=== PATIENT | female | born 1965 | race Two or more races ===

== ENCOUNTER 2025-03-13 20:20 | Emergency (ER) | payer MEDICAID, SELFPAY ==
[2025-03-13 21:20] VITALS: BP 174/94; PULSE 76; RESP 20; TEMP 36.9; O2SAT 96; BMI 40.8
--- NOTE | 2025-03-13 21:27 | XR_ITS ---
Examination: Abdomen sonogram, Limited Date and time of exam: March 13, 2025, 2147 hours INDICATIONS: Right upper abdominal pain today Technique: Real-time jalloh scale transabdominal sonographic images of the upper abdomen obtained. Findings: No stones Gallbladder 1.3 cm no edema Common bile duct 0.5 cm Pancreatic head 2.5 cm Liver 19.5 cc of fatty infiltration Normal hepatopedal portal venous flow Patent IVC IMPRESSION: Negative for cholelithiasis, negative for cholecystitis Moderate hepatomegaly with fatty infiltration
--- NOTE | 2025-03-13 21:27 | EDRME_ITS ---
Rapid Medical Screening Exam [facility] Arrival date/time: 03/13/25 20:20 59F with history of DM presents to ED with worsening RUQ/epigastric pain. Chief Complaint: Abdominal Pain Vital signs: Vital Signs Temperature 98.5 F 03/13/25 21:20 Pulse Rate 76 03/13/25 21:20 Respiratory Rate 20 03/13/25 21:20 Blood Pressure 174/94 H 03/13/25 21:20 Pulse Oximetry (%) 96 03/13/25 21:20 Oxygen Delivery Method Room Air 03/13/25 21:20
[2025-03-13] MEDS: MG HYD/AL HYD/SIME (Maalox Reg) SUSP 30 ML UDC PO (21:44)
[2025-03-13] MEDS: FAMOTIDINE 20 MG TABLET 40 MG PO (21:44)
[2025-03-13 22:30] LABS: Basophils # (Auto) 0.0 Thou/mm3 (0.0-0.2); Basophils % (Auto) 1 % (0-2.5); Eosinophils # (Auto) 0.2 Thou/mm3 (0.0-0.5); Eosinophils % (Auto) 2 % (0-10); Hematocrit 35.3 % (36.0-46.0); Hemoglobin 11.2 g/dL (12.0-16.0); Immature Granulocytes Auto 0.02 Thou/mm3 (0.00-0.00); Lymphocytes # (Auto) 2.7 Thou/mm3 (1.0-4.8); Lymphocytes % (Auto) 35 % (10-50); Mean Corpuscular HGB Conc 31.7 g/dl (31.0-37.0); Mean Corpuscular Hemoglobin 28.3 pg (25.0-35.0); Mean Corpuscular Volume 89 fL (80-100); Monocytes # (Auto) 0.6 Thou/mm3 (0.0-0.8); Monocytes % (Auto) 8 % (0-12); Neutrophils # (Auto) 4.2 Thou/mm3 (1.8-7.7); Neutrophils % (Auto) 54 % (37-80); Nucleated Red Blood Cell # 0.00 Thou/mm3 (0.00-0.00); Nucleated Red Blood Cell % 0 /100 WBC (0); Platelet Count 186 Thou/mm3 (140-440); RDW Standard Deviation 40.2 fL (36.4-46.3); Red Blood Count 3.96 Miln/mm3 (4.00-5.20); White Blood Count 7.8 Thou/mm3 (3.6-11.0)
[2025-03-13 22:48] LABS: Alanine Aminotransferase 42 U/L (10-49); Albumin, Serum 4.6 gm/dL (3.5-5.0); Albumin/Globulin Ratio 1.8 (1.2-2.2); Alkaline Phosphatase 106 U/L (46-116); Anion Gap 9 (7-16); Aspartate Amino Transferase 32 U/L (0-34); BUN/Creatinine Ratio 14 Ratio (12-20); Bilirubin,Total 1.0 mg/dL (0.3-1.2); Blood Urea Nitrogen 14 mg/dL (9-23); Calcium 10.1 mg/dL (8.3-10.6); Calcium (Corrected) 10.1 mg/dL (8.5-10.1); Carbon Dioxide 24.3 mMol/L (20.0-31.0); Chloride 105 mMol/L (98-107); Creatinine (Component) 1.0 mg/dL (0.6-1.3); Estimated Creatinine Clearance 74.5 mL/min (>60); Globulin 2.5 gm/dL (2.3-3.5); Glucose 215 mg/dL (74-106); Lipase 49 U/L (12-53); Osmolality,Calculated 282 (275-295); Potassium 4.5 mMol/L (3.4-5.1); Sodium 138 mMol/L (136-145); Total Protein 7.1 gm/dL (5.7-8.2); eGFR > 60 See Note
[2025-03-14 00:24] VITALS: BP 201/83; PULSE 70; RESP 21; TEMP 36.6; O2SAT 100
[2025-03-14 00:30] VITALS: BP 191/101
--- NOTE | 2025-03-14 00:41 | PD.EDABDPN ---
ED Abdominal Pain RME/HPI General Chief Complaint: Abdominal Pain Stated complaint: upper abdominal pain Arrival date/time: 03/13/25 20:20 RME / HPI RME / HPI narrative: 03/13/25 20:20 59F with history of DM presents to ED with worsening RUQ/epigastric pain. 59-year-old female with a 1 day history of epigastric abdominal pain and burning in her chest. She does have a history of possible gallstones and gastroesophageal reflux disease. She denies fevers. This pain is made worse with food. No vomiting. She does have a history of hypertension. Related Data Previous Rx's ?Medication ?Instructions ?Recorded psyllium husk 3 gram/5.4 gram oral 1 tbsp PO QDAY #284 grams 08/30/22 powder blood sugar diagnostic (Blood #50 ea 12/13/23 Glucose Test strips) blood-glucose meter #1 ea 12/13/23 blood-glucose sensor (FreeStyle #2 ea 12/13/23 Marjorie 3 Sensor device) insulin glargine 100 unit/mL (3 40 unit (0.4 mL) subcut QDAY #15 mL 12/13/23 mL) subcutaneous pen, sensor (Basaglar Tempo Pen (U-100) Insulin) lancets #100 ea 12/13/23 pen needle, diabetic 29 gauge x #100 ea 12/13/23 1/2 hydrocodone 5 mg-acetaminophen 325 1 tab PO BID PRN pain #10 tabs 03/12/24 mg tablet bisacodyl 5 mg tablet,delayed 5 mg PO QDAY PRN constipation #30 04/11/24 release (Dulcolax (bisacodyl)) tabs amoxicillin 500 mg-potassium 1 tab PO TID #20 tabs 05/02/24 clavulanate 125 mg tablet (Augmentin) hydrocodone 5 mg-acetaminophen 325 1 tab PO Q8H PRN pain #10 tabs 05/02/24 mg tablet polyethylene glycol 3350 17 gram 17 g PO BID #100 ea 05/02/24 oral powder packet (Miralax) peg 3350-electrolytes 236 240 ml PO Q10M PRN constipation 05/18/24 gram-22.74 gram-6.74 gram-5.86 #4,000 mL gram solution (GaviLyte-G) pantoprazole 40 mg tablet,delayed 40 mg PO QDAY #30 tabs 03/14/25 release (Protonix) Allergies Allergy/AdvReac Type Severity Reaction Status Date / Time No Known Allergies Allergy Verified 05/18/24 15:05 Review of Systems Review of Systems Systems Reviewed: All systems reviewed, normal except as documented ED Exam Narrative Physical exam: Generally patient is alert no obvious distress, heart regular rate and rhythm, lungs clear to auscultation equal bilaterally, abdomen soft bowel sounds present nondistended mild epigastric abdominal tenderness without rebound. No right upper quadrant abdominal tenderness. Skin is cool pale and dry. Neurologic exam no focal motor or sensory deficits cranial nerves II through XII grossly intact Course Quality Measures none Orders Category Date Time Status US gall bladder Stat Exams 03/13/25 21:27 Completed CBC Stat Lab 03/13/25 22:15 Completed CMP [Comprehensive Metabolic Panel] Stat Lab 03/13/25 22:15 Completed Lipase Stat Lab 03/13/25 22:15 Completed Famotidine [Pepcid] Med 03/13/25 21:27 Discontinued 40 mg PO X1 ONE mg Hyd/Al Hyd/Xu Susp [Maalox Susp] Med 03/13/25 21:27 Discontinued 30 ml PO X1 ONE Vital Signs Vital signs: Vital Signs Temperature 98.5 F 03/13/25 21:20 Pulse Rate 76 03/13/25 21:20 Respiratory Rate 20 03/13/25 21:20 Blood Pressure 174/94 H 03/13/25 21:20 Pulse Oximetry (%) 96 03/13/25 21:20 Oxygen Delivery Method Room Air 03/13/25 21:20 Abdominal Pain MDM MDM Narrative MDM Narrative:: I interpreted all labs. LFTs were normal. There is no leukocytosis. Physical exam is quite benign. I will start the patient on Protonix to be taken as prescribed. Patient did have a gallbladder ultrasound here in the emergency room which was negative. Patient data External records reviewed:: None Clinical information provided by:: patient Social determinants that could affect healthcare access:: none Patient has the following chronic illnesses:: Gastroesophageal reflux disease How is presenting disease/condition affected by chronic disease/condition?: no chronic disease Evaluation data The following diagnostics were reviewed and interpreted by me:: lab results and radiology exam(s) Lab and/or radiology exams considered but not ordered:: None Interpretation Summary: None Medications / Prescriptions Medications or Prescriptions considered but not ordered:: None Medication administrations:: Medication Administration History Discontinued Medications Al Hydrox/Mg Hydrox/Simethicone (Mg Hyd/Al Hyd/Xu (Maalox Reg) Susp 30 Ml Udc) 30 ml PO X1 ONE Stop: 03/13/25 21:28 Last Admin: 03/13/25 21:44 Dose: 30 ml Documented By: OA Famotidine (Famotidine 20 Mg Tablet) 40 mg PO X1 ONE Stop: 03/13/25 21:28 Last Admin: 03/13/25 21:44 Dose: 40 mg Documented By: OA None Consultations Consultation(s) initiated? (list below): Yes Diagnosis Differential diagnosis abdominal pain: abdominal pain Most likely diagnosis given after review of the tests above:: None Admission Indicated Admission indicated?: not indicated Admission Request Was there a request for admission?: No Disposition Plan Disposition Plan: Discharge Discharge Attestation Discharge Attestation: The patient and all family members were given an opportunity to ask questions and understood the discharge instructions. Discharge instructions specifically effects, indications for sooner follow up or return to the emergency department, and the expected course of current diagnosis. Patient condition: Stable Discharge Plan Plan Patient Disposition: HOME (Self Care) Prescriptions/Referrals Prescriptions/Med Rec: New pantoprazole [Protonix] 40 mg tablet,delayed release (DR/EC) 40 mg PO QDAY Qty: 30 0RF No Action psyllium husk 3 gram/5.4 gram powder 1 tbsp PO QDAY Qty: 284 0RF Rx Instructions: mix into at least 8 oz of water or juice before administering (DME) FreeStyle Marjorie 3 Sensor Device See Rx Instructions .Route Qty: 2 0RF Rx Instructions: As directed Basaglar Tempo Pen(U-100)Insln 100 unit/mL (3 mL) insulin pen, sensor 40 unit subcut QDAY Qty: 15 0RF (DME) pen needle, diabetic 29 gauge x 1/2 needle See Rx Instructions .Route Qty: 100 0RF Rx Instructions: As directed (DME) Blood Glucose Test Strip See Rx Instructions .Route Qty: 50 0RF Rx Instructions: As directed (DME) lancets Misc See Rx Instructions .Route Qty: 100 0RF Rx Instructions: As directed (DME) blood-glucose meter Kit See Rx Instructions .Route Qty: 1 0RF Rx Instructions: As directed peg 3350-electrolytes [GaviLyte-G] 236-22.74-6.74 -5.86 gram recon soln 240 ml PO Q10M PRN (Reason: constipation) Qty: 4000 0RF Rx Instructions: until fecal effluent is clear hydrocodone-acetaminophen 5-325 mg tablet 1 tab PO BID MDD 10 PRN (Reason: pain) Qty: 10 0RF bisacodyl [Dulcolax (bisacodyl)] 5 mg tablet,delayed release (DR/EC) 5 mg PO QDAY PRN (Reason: constipation) Qty: 30 0RF hydrocodone-acetaminophen 5-325 mg tablet 1 tab PO Q8H MDD 3 tab PRN (Reason: pain) Qty: 10 0RF amoxicillin-pot clavulanate [Augmentin] 500-125 mg tablet 1 tab PO TID Qty: 20 0RF polyethylene glycol 3350 [Miralax] 17 gram powder in packet 17 g PO BID Qty: 100 0RF Referrals: No Primary/Family,Physician [Primary Care Provider] - In 1 week Problem List Clinical Impression: Abdominal pain Patient/Caregiver Discharge Instructions Education Materials: Abdominal Pain Additional Instructions: Avoid hot spicy greasy fatty foods. Follow-up with your doctor. Return to ER as needed or if condition worsens. Protonix as prescribed. Print Language: Turkish Stand Alone Forms: Manju Award Info., Patient Portal Info Letter
== END 2025-03-14 01:00 | disposition home or self-care (01) ==
PROVIDERS: Physician Assistant; Emergency Provider Emergency Medicine
DX: R10.13 Epigastric pain (principal); I10 Essential (primary) hypertension; K76.0 Fatty (change of) liver, not elsewhere classified
CPT/HCPCS: 36415; 76705; 80053; 83690; 85025; 99283; A9270

== ENCOUNTER 2025-05-13 15:56 | Emergency (ER) | payer MEDICAID, SELFPAY ==
[2025-05-13 16:33] VITALS: BP 146/87; PULSE 84; RESP 18; TEMP 36.9; O2SAT 97; BMI 41.1
--- NOTE | 2025-05-13 16:51 | XR_ITS ---
Examination: CT abdomen and pelvis without contrast. Coronal 3-D reconstructions. Sagittal 2-D reconstructions. Date and time of exam: May 13, 2025, 1715 hours, comparison May 02, 2024 INDICATIONS: Generalized abdominal pain beginning 4 days ago COMPARISON: May 02, 2024 CTDI: vol (mGy): 12.8 DLP: (mGycm): 749 Technique: Axial images of the abdomen have been obtained, 3 mm slice thickness Intravenous contrast material has not been administered. Low dose protocols were performed. One or more of the following dose reduction techniques were used; automated exposure control, adjustment of the mA and/or KV according to patient size, use of iterative reconstruction technique. Findings: No visualized liver or splenic lesions No gallstones No pancreatic or adrenal mass Absent left kidney Moderate right renal parenchymal scar formation, 2 mm right renal calculus, no hydronephrosis or ureteral calculi Aorta normal size No bowel obstruction Normal appendix No diverticulitis. Atrophic uterus Contracted urinary bladder. Prominent osteopenia with chronic osteoporotic compression T11 IMPRESSION: Absent left kidney Moderate right renal parenchymal scar formation 2 mm right renal calculus, no hydronephrosis or ureteral calculi Normal appendix No bladder mass or bladder calculi.
--- NOTE | 2025-05-13 16:51 | PD.EDRME ---
Rapid Medical Screening Exam [facility] Arrival date/time: 05/13/25 15:56 59-year-old female with a history of type 2 diabetes presents to the emergency room with a chief complaint of lower abdominal pain x 1 week I have greeted and performed a focused initial assessment of this patient. A comprehensive ED assessment and evaluation of the patient, analysis of all test results, and completion of the medical decision making process will be conducted by additional ED providers. Chief Complaint: Abdominal Pain Time Seen by Provider: 05/13/25 16:18 Vital signs: Vital Signs Temperature 98.5 F 05/13/25 16:33 Pulse Rate 84 05/13/25 16:33 Respiratory Rate 18 05/13/25 16:33 Blood Pressure 146/87 H 05/13/25 16:33 Pulse Oximetry (%) 97 05/13/25 16:33 Oxygen Delivery Method Room Air 05/13/25 16:33 Vital signs reviewed by provider: Yes
[2025-05-13 17:31] LABS: Collection Type, Urine Clean Catch
[2025-05-13] MEDS: KETOROLAC INJ 60 MG/2 ML VIAL 30 MG IM (17:31)
[2025-05-13 17:40] LABS: Bilirubin,Urine Negative (Negative); Blood,Urine Negative (Negative); Clarity,Urine Clear (Clear/Hazy); Color,Urine Lt-Yellow (Lt Yel-Yel); Glucose, Urine Negative (Negative); Ketones,Urine Negative (Negative); Leukocyte Esterase,Urine Negative (Negative); Nitrite,Urine Negative (Negative); PH,Urine 5.5 (5.0-7.0); Protein,Urine 1+ (Neg - Trace); RBC,Urine 1 /hpf (0-3); Specific Gravity,Urine 1.022 (1.001-1.035); Squamous Epithelial Cell,Urine 1 /hpf (0-5); Urobilinogen,Urine Negative mg/dL (0.0-1.0); WBC,Urine 1 /hpf (0-5)
[2025-05-13 18:09] LABS: Basophils # (Auto) 0.0 Thou/mm3 (0.0-0.2); Basophils % (Auto) 1 % (0-2.5); Eosinophils # (Auto) 0.1 Thou/mm3 (0.0-0.5); Eosinophils % (Auto) 2 % (0-10); Hematocrit 34.2 % (36.0-46.0); Hemoglobin 11.1 g/dL (12.0-16.0); Immature Granulocytes Auto 0.04 Thou/mm3 (0.00-0.00); Lymphocytes # (Auto) 2.2 Thou/mm3 (1.0-4.8); Lymphocytes % (Auto) 27 % (10-50); Mean Corpuscular HGB Conc 32.5 g/dl (31.0-37.0); Mean Corpuscular Hemoglobin 28.3 pg (25.0-35.0); Mean Corpuscular Volume 87 fL (80-100); Monocytes # (Auto) 0.6 Thou/mm3 (0.0-0.8); Monocytes % (Auto) 7 % (0-12); Neutrophils # (Auto) 5.3 Thou/mm3 (1.8-7.7); Neutrophils % (Auto) 63 % (37-80); Nucleated Red Blood Cell # 0.00 Thou/mm3 (0.00-0.00); Nucleated Red Blood Cell % 0 /100 WBC (0); Platelet Count 186 Thou/mm3 (140-440); RDW Standard Deviation 40.1 fL (36.4-46.3); Red Blood Count 3.92 Miln/mm3 (4.00-5.20); White Blood Count 8.3 Thou/mm3 (3.6-11.0)
[2025-05-13 18:31] LABS: Alanine Aminotransferase 43 U/L (10-49); Albumin, Serum 4.7 gm/dL (3.5-5.0); Albumin/Globulin Ratio 1.9 (1.2-2.2); Alkaline Phosphatase 109 U/L (46-116); Anion Gap 12 (7-16); Aspartate Amino Transferase 27 U/L (0-34); BUN/Creatinine Ratio 22 Ratio (12-20); Bilirubin,Total 1.0 mg/dL (0.3-1.2); Blood Urea Nitrogen 29 mg/dL (9-23); Calcium 10.1 mg/dL (8.3-10.6); Calcium (Corrected) 10.1 mg/dL (8.5-10.1); Carbon Dioxide 23.4 mMol/L (20.0-31.0); Chloride 103 mMol/L (98-107); Creatinine (Component) 1.3 mg/dL (0.6-1.3); Estimated Creatinine Clearance 57.6 mL/min (>60); Globulin 2.5 gm/dL (2.3-3.5); Glucose 257 mg/dL (74-106); Lipase 67 U/L (12-53); Osmolality,Calculated 290 (275-295); Potassium 4.4 mMol/L (3.4-5.1); Sodium 138 mMol/L (136-145); Total Protein 7.2 gm/dL (5.7-8.2); eGFR 48 See Note
--- NOTE | 2025-05-13 19:28 | PD.EDADULT ---
ED General RME/HPI General Chief complaint: Abdominal Pain Stated complaint: ABD PAIN Time Seen by Provider: 05/13/25 16:18 Arrival date/time: 05/13/25 15:56 CC: Low center abdominal pain with nausea HPI ongoing for 1 week denies taking any new medications. The time of the exam at 1920, the patient has no pain secondary to the Toradol injection given in the waiting room. Patient is awake alert oriented nontoxic-appearing not in any acute distress. RME / HPI RME / HPI narrative: 05/13/25 15:56 59-year-old female with a history of type 2 diabetes presents to the emergency room with a chief complaint of lower abdominal pain x 1 week I have greeted and performed a focused initial assessment of this patient. A comprehensive ED assessment and evaluation of the patient, analysis of all test results, and completion of the medical decision making process will be conducted by additional ED providers. Related Data Previous Rx's ?Medication ?Instructions ?Recorded psyllium husk 3 gram/5.4 gram oral 1 tbsp PO QDAY #284 grams 08/30/22 powder blood sugar diagnostic (Blood #50 ea 12/13/23 Glucose Test strips) blood-glucose meter #1 ea 12/13/23 blood-glucose sensor (FreeStyle #2 ea 12/13/23 Marjorie 3 Sensor device) insulin glargine 100 unit/mL (3 40 unit (0.4 mL) subcut QDAY #15 mL 12/13/23 mL) subcutaneous pen, sensor (Basaglar Tempo Pen (U-100) Insulin) lancets #100 ea 12/13/23 pen needle, diabetic 29 gauge x #100 ea 12/13/23 1/2 hydrocodone 5 mg-acetaminophen 325 1 tab PO BID PRN pain #10 tabs 03/12/24 mg tablet bisacodyl 5 mg tablet,delayed 5 mg PO QDAY PRN constipation #30 04/11/24 release (Dulcolax (bisacodyl)) tabs amoxicillin 500 mg-potassium 1 tab PO TID #20 tabs 05/02/24 clavulanate 125 mg tablet (Augmentin) hydrocodone 5 mg-acetaminophen 325 1 tab PO Q8H PRN pain #10 tabs 05/02/24 mg tablet polyethylene glycol 3350 17 gram 17 g PO BID #100 ea 05/02/24 oral powder packet (Miralax) peg 3350-electrolytes 236 240 ml PO Q10M PRN constipation 05/18/24 gram-22.74 gram-6.74 gram-5.86 #4,000 mL gram solution (GaviLyte-G) pantoprazole 40 mg tablet,delayed 40 mg PO QDAY #30 tabs 03/14/25 release (Protonix) meloxicam 7.5 mg tablet 7.5 mg PO QDAY #10 tabs 05/13/25 ondansetron 4 mg disintegrating 4 mg PO Q8H #10 tabs 05/13/25 tablet Allergies Allergy/AdvReac Type Severity Reaction Status Date / Time No Known Allergies Allergy Verified 05/13/25 15:59 Review of Systems Review of Systems Narrative Review of Systems: GEN: No fever, no chills, no weight loss EYES: No discharge, no visual changes, no pain HEENT: No ear pain, no congestion, no sore throat PULM: No shortness of breath, no cough, no congestion CV: No chest pain, no dyspnea on exertion, no palpitations GI: No nausea, no vomiting, no diarrhea, + pain, no constipation : No frequency, no urgency, no dysuria MUSC/SKEL: No joint pain, no back pain SKIN: No rash PSYCH: No hallucinations, no depression HEME/LYMPH: No easy bleeding or bruising tendencies NEURO: No weakness, no headache Past Medical History Past Medical History NEUROLOGIC: Negative Neurological Disorders or Seizures CARDIAC: Positive Cardiac Disorders, Hypercholesterolemia and Hypertension; Negative Congestive Heart Failure RESPIRATORY: Negative Chronic Obstructive Pulmonary Disease (COPD) or Asthma GASTROINTESTINAL: Positive Gastrointestinal Disorders and Gastroesophageal Reflux Disease GENITOURINARY: Positive Genitourinary Disorders and Renal Disease MUSCULOSKELETAL: Negative Musculoskeletal Disorders ENDOCRINE: Positive Endocrine Disorders and Diabetes Mellitus Type 2; Negative Diabetes Mellitus Type 1 HEMATOLOGIC: Positive Anemia; Negative Blood Disorders or Sickle Cell Disease OTHER HISTORY: Positive Blood Transfusions; Negative Autoimmune Disease, Blood Transfusion Reaction, Anesthesia Reactions or Cancer Family History FAMILY HISTORY: Positive Family Cardiac Disorders Surgical History SURGICAL: Positive Nephrectomy Social History SMOKING STATUS: Never smoker ED Exam Narrative Physical exam: [General: Morbid obese not in any acute distress Head normocephalic HEENT: Within acceptable limits Neck is supple nontender Chest equal chest rise nontender to palpation Respiratory: Clear to auscultation no wheezes crackles or rubs CV: Rate rhythm is regular no murmurs rubs or clicks Abdomen is distended secondary to body habitus soft nontender no masses positive bowel sounds all 4 quadrants Back: No CVA tenderness no spinous process tenderness from cervical spine thoracic and lumbar spine Skin: Intact no petechiae rash induration ulceration or crepitus Extremities: Moving all extremity against resistance cap refill less than 2 seconds neurosensory intact Neuro: Awake alert oriented x3 Glascow coma 15 no focal deficits] Course Course Course Narrative: Laboratory results show the patient has no leukocytosis however she does have an elevated BUN with a normal creatinine. This is not the first time with reviewing her medical records from previous visits. Advised the patient she needs IV fluids then she can follow-up home. At 1930 patient refused IV fluids stating her dog is out in the rain and she wants to go home. Patient is awake alert oriented nontoxic-appearing not in any acute distress with stable vital signs. Quality Measures none Orders Category Date Time Status CT abdomen pelvis wo con Stat Exams 05/13/25 16:51 Completed CBC Stat Lab 05/13/25 17:49 Completed CMP [Comprehensive Metabolic Panel] Stat Lab 05/13/25 17:49 Completed Lipase Stat Lab 05/13/25 17:49 Completed UA [Urinalysis] Stat Lab 05/13/25 17:15 Completed Urine Culture Stat Lab 05/13/25 16:51 Received Ketorolac Inj [Toradol Inj] Med 05/13/25 16:51 Discontinued 30 mg IM X1 ONE Vital Signs Vital signs: Vital Signs Temperature 98.5 F 05/13/25 16:33 Pulse Rate 84 05/13/25 16:33 Respiratory Rate 18 05/13/25 16:33 Blood Pressure 146/87 H 05/13/25 16:33 Pulse Oximetry (%) 97 05/13/25 16:33 Oxygen Delivery Method Room Air 05/13/25 16:33 Discharge Plan Plan Patient Disposition: HOME (Self Care) Patient condition on transfer: Stable Prescriptions/Referrals Prescriptions/Med Rec: New meloxicam 7.5 mg tablet 7.5 mg PO QDAY Qty: 10 0RF ondansetron 4 mg tablet,disintegrating 4 mg PO Q8H Qty: 10 0RF No Action psyllium husk 3 gram/5.4 gram powder 1 tbsp PO QDAY Qty: 284 0RF Rx Instructions: mix into at least 8 oz of water or juice before administering (DME) FreeStyle Marjorie 3 Sensor Device See Rx Instructions .Route Qty: 2 0RF Rx Instructions: As directed Basaglar Tempo Pen(U-100)Insln 100 unit/mL (3 mL) insulin pen, sensor 40 unit subcut QDAY Qty: 15 0RF (DME) pen needle, diabetic 29 gauge x 1/2 needle See Rx Instructions .Route Qty: 100 0RF Rx Instructions: As directed (DME) Blood Glucose Test Strip See Rx Instructions .Route Qty: 50 0RF Rx Instructions: As directed (DME) lancets Misc See Rx Instructions .Route Qty: 100 0RF Rx Instructions: As directed (DME) blood-glucose meter Kit See Rx Instructions .Route Qty: 1 0RF Rx Instructions: As directed peg 3350-electrolytes [GaviLyte-G] 236-22.74-6.74 -5.86 gram recon soln 240 ml PO Q10M PRN (Reason: constipation) Qty: 4000 0RF Rx Instructions: until fecal effluent is clear hydrocodone-acetaminophen 5-325 mg tablet 1 tab PO BID MDD 10 PRN (Reason: pain) Qty: 10 0RF bisacodyl [Dulcolax (bisacodyl)] 5 mg tablet,delayed release (DR/EC) 5 mg PO QDAY PRN (Reason: constipation) Qty: 30 0RF hydrocodone-acetaminophen 5-325 mg tablet 1 tab PO Q8H MDD 3 tab PRN (Reason: pain) Qty: 10 0RF amoxicillin-pot clavulanate [Augmentin] 500-125 mg tablet 1 tab PO TID Qty: 20 0RF polyethylene glycol 3350 [Miralax] 17 gram powder in packet 17 g PO BID Qty: 100 0RF pantoprazole [Protonix] 40 mg tablet,delayed release (DR/EC) 40 mg PO QDAY Qty: 30 0RF Referrals: Derek Thorpe MD [Primary Care Provider, Family Practice] - In 1 week Problem List Clinical Impression: Abdominal pain, Nausea Patient/Caregiver Discharge Instructions Other Activity Instructions:: Take the medication for abdominal pain and nausea. Follow-up with your primary care doctor. Education Materials: Abdominal Pain Print Language: Colombian Stand Alone Forms: Man[employer] Award Info., Patient Portal Info Letter, Work/School Release [facility] Clinical Information Provided by: patient Medical Records reviewed [facility] Meds/Rx considered, not ordered None Labs/Rad/Tests considered, not ordered None Chronic Illness/Social Conditions which may negatively complicate care or outcome(s)-explain: None or not applicable EKG EKG not done Labs Labs: interpreted by me Lab(s) Interpretation(s): CBC shows no leukocytosis stable anemia of 11.1 and 34.2 no thrombocytopenia CMP shows no significant electrolyte imbalances the BUN is 29 creatinine 1.3. Glucose at 257. No transaminitis or T. bili elevation Lipase at 67. Urine shows 1+ protein and no other acute findings Imaging Imaging interpretation: interpreted by me Imaging Interpretation(s): CT abdomen pelvis shows no acute finding that requires emergent or immediate intervention Medication Administration(s) none Medication Administration History Discontinued Medications Ketorolac Tromethamine (Ketorolac Inj 60 Mg/2 Ml Vial) 30 mg IM X1 ONE Stop: 05/13/25 16:52 Last Admin: 05/13/25 17:31 Dose: 30 mg Documented By: RAMON Diagnosis Differential Diagnosis ED Complaint MDM: Obstruction ileus UTI
== END 2025-05-13 20:10 | disposition home or self-care (01) ==
PROVIDERS: Nurse Practitioner Family; Emergency Provider Emergency Medicine; PCP Family Medicine
DX: R10.9 Unspecified abdominal pain (principal); R11.0 Nausea
CPT/HCPCS: 36415; 74176; 80053; 81001; 83690; 85025; 87086; 96372; 99283; J1885

== ENCOUNTER 2025-07-11 22:04 | Emergency (ER) | payer MEDICAID, SELFPAY ==
[2025-07-11 22:05] VITALS: BMI 39.4
[2025-07-11 22:41] VITALS: BP 159/85; PULSE 76; RESP 19; TEMP 36.8; O2SAT 97
--- NOTE | 2025-07-11 23:36 | EDNOTE_ITS ---
ED Abdominal Pain RME/HPI General Chief Complaint: Abdominal Pain Stated complaint: RIGHT UPPER ABD PAIN Time seen by provider: 07/11/25 23:11 Arrival date/time: 07/11/25 22:04 RME / HPI RME / HPI narrative: See [facility] for Dr. Huggins's HPI Documentation. Related Data Previous Rx's ?Medication ?Instructions ?Recorded psyllium husk 3 gram/5.4 gram oral 1 tbsp PO QDAY #284 grams 08/30/22 powder blood sugar diagnostic (Blood #50 ea 12/13/23 Glucose Test strips) blood-glucose meter #1 ea 12/13/23 blood-glucose sensor (FreeStyle #2 ea 12/13/23 Marjorie 3 Sensor device) insulin glargine 100 unit/mL (3 40 unit (0.4 mL) subcu t QDAY #15 mL 12/13/23 mL) subcutaneous pen, sensor (Externauticsaglar Tempo Pen (U-100) Insulin) lancets #100 ea 12/13/23 pen needle, diabetic 29 gauge x #100 ea 12/13/23 1/2 hydrocodone 5 mg-acetaminophen 325 1 tab PO BID PRN pa in #10 tabs 03/12/24 mg tablet bisacodyl 5 mg tablet,delayed 5 mg PO QDAY PRN constip ation #30 04/11/24 release (Dulcolax (bisacodyl)) tabs amoxicillin 500 mg-potassium 1 tab PO TID #20 tabs 10/21 clavulanate 125 mg tablet (Augmentin) hydrocodone 5 mg-acetaminophen 325 1 tab PO Q8H PRN pa in #10 tabs 05/02/24 mg tablet polyethylene glycol 3350 17 gram 17 g PO BID #100 ea 1 oral powder packet (Miralax) peg 3350-electrolytes 236 240 ml PO Q10M PRN constipat ion 05/18/24 gram-22.74 gram-6.74 gram-5.86 #4,000 mL gram solution (GaviLyte-G) pantoprazole 40 mg tablet,delayed 40 mg PO QDAY #30 ta bs 03/14/25 release (Protonix) meloxicam 7.5 mg tablet 7.5 mg PO QDAY #10 tabs 1011/22 ondansetron 4 mg disintegrating 4 mg PO Q8H #10 tabs 1 tablet acetaminophen 300 mg-codeine 30 mg 2 tab PO Q8H PRN pa in #20 tabs 07/12/25 tablet lidocaine 5 % topical patch 2 patch topical QDAY PRN p ain #30 07/12/25 (Lidoderm) ea Allergies Allergy/AdvReac Type Severity Reaction Status Date / Time No Known Allergies Allergy Verified 07/11/25 22:05 Review of Systems Review of Systems Systems Reviewed: All systems reviewed, normal except as documented Past Medical History Past Medical History CARDIAC: Positive Cardiac Disorders, Hypercholesterolemia and Hypertension GASTROINTESTINAL: Positive Gastrointestinal Disorders and Gastroesophageal Reflux Disease GENITOURINARY: Positive Genitourinary Disorders and Renal Disease ENDOCRINE: Positive Endocrine Disorders and Diabetes Mellitus Type 2 HEMATOLOGIC: Positive Anemia OTHER HISTORY: Positive Blood Transfusions Family History FAMILY HISTORY: Positive Family Cardiac Disorders Surgical History SURGICAL: Positive Nephrectomy ED Exam Narrative Physical exam: See [facility] for Dr. Huggins's Physical Exam Documentation. Course Quality Measures none Orders Category Date Time Status ACETAMINOPHEN w/COD 300-30 [Tylenol w/Cod #3] Med 07/11/25 23:58 Discontinued 2 tab PO X1 ONE Ibuprofen Tab [Motrin Tab] Med 07/11/25 23:56 Discontinued 800 mg PO X1 ONE Lidocaine 5% Patch Med 07/11/25 23:56 Discontinued 2 patch TOP X1 ONE Vital Signs Vital signs: Vital Signs Temperature 98.3 F 07/11/25 22:41 Pulse Rate 76 07/11/25 22:41 Respiratory Rate 19 07/11/25 22:41 Blood Pressure 159/85 H 07/11/25 22:41 Pulse Oximetry (%) 97 07/11/25 22:41 Oxygen Delivery Method Room Air 07/11/25 22:41 Abdominal Pain [facility] Narrative [facility] Narrative:: This section includes all my notes and documentations, including HPI, PE, and ED course. Jonathan Huggins MD HPI: 59 y/o female here with right-sided abdominal pain. Started yesterday after bending down and getting up. No nausea or vomiting. Eating normally. No fever or chills. No diarrhea or constipation. No urinary symptoms. No other complaints. ROS: All negative except as documented in HPI. Physical Exam: General: Alert and oriented. No acute distress when remaining still. Eyes: Conjunctivae and lids clear. ENT: No nasal congestion. Neck: Supple. Heart: RRR. Lungs: No respiratory distress. Good air movement. No rhonchi, wheezing, rales. Abdomen: Soft. Normal bowel sounds. No distension. No rebound or guarding. Tenderness in RUQ region reproduced with contraction of the abdominal wall muscles. Back: No CVA tenderness. Skin: Warm and dry. Neuro: Alert and oriented X 3. My review of 05/13/[address] report is NAD. My review 03/13/2025 gallbladder US report is NAD, including no cholelithiasis. At this point, diagnoses include: Strain of abdominal wall Treatment here included: Two Tylenol #3 Motrin 800 mg Lidocaine patches She felt much better. Recommended supportive care. Based on my best medical judgment, made decision no further evaluation or treatment indicated at this time. Patient understands and agrees to the discharge instructions customized and printed, see below. Discharge Instructions from Dr. Huggins printed for you: 1. Your right sided abdominal pain that started yesterday after you bent down and got up is due to muscle strain. See attached handout. Apply ice for 20 minutes every 2-3 hours today and tomorrow. Ibuprofen 800 mg every 6-8 hours today and tomorrow to decrease inflammation then as needed. Tylenol with codeine and lidocaine patches as needed. 2. If you want to find the cause and treatment of your chronic abdominal pain, you need to see a private doctor outside the ER to get more investigation not available here in the ER. 3. See a private doctor on 07/14/2025. To make sure there is no serious intra-abdominal condition, ask for help with more investigation not available here in the ER. Such as EGD or scoping the stomach, colonoscopy or scoping the colon, and referral to see apparel sales leader. 4. Seek immediate medical care with worsening or with any concerns. Jonathan Huggins MD Patient data External records reviewed:: [facility] previous records (Reviewed prior ED records from 05/13/25. Patient was seen for Abdominal pain.) Clinical information provided by:: patient Social determinants that could affect healthcare access:: none Patient has the following chronic illnesses:: Hypercholesterolemia, Hypertension, Gastroesophageal Reflux Disease, Renal Disease, Diabetes Mellitus Type 2, Anemia How is presenting disease/condition affected by chronic disease/condition?: exacerbated by Evaluation data The following diagnostics were reviewed and interpreted by me:: other (specify) (N/A) Lab and/or radiology exams considered but not ordered:: None Interpretation Summary: My review of 05/13/[address] report is NAD. My review 03/13/2025 gallbladder US report is NAD, including no cholelithiasis. Medications / Prescriptions Medications or Prescriptions considered but not ordered:: None Medication administrations:: Medication Administration History Discontinued Medications Acetaminophen/Codeine Phosphate (Acetaminophen W/Cod 300-30 Tablet) 2 tab PO X1 ONE Stop: 07/11/25 23:59 Last Admin: 07/12/25 00:35 Dose: 2 tab Documented By: BD Ibuprofen (Ibuprofen Tab 400 Mg Tablet) 800 mg PO X1 ONE Stop: 07/11/25 23:57 Last Admin: 07/12/25 00:35 Dose: 800 mg Documented By: BD Lidocaine (Lidocaine 5% 1 Patch) 2 patch TOP X1 ONE Stop: 07/11/25 23:57 Last Admin: 07/12/25 00:35 Dose: 2 patch Documented By: BD Treatment here included: Two Tylenol #3 Motrin 800 mg Lidocaine patches Consultations Consultation(s) initiated? (list below): No Diagnosis Differential diagnosis abdominal pain: other (Muscle sprain/strain) Most likely diagnosis given after review of the tests above:: Strain of abdominal wall Admission Indicated Admission indicated?: not indicated Explain why admission is indicated or not indicated:: With significant improvement and no condition needing emergent intervention, there was no indication for admission. Admission Request Was there a request for admission?: No Disposition Plan Disposition Plan: Discharge Discharge Attestation Discharge Attestation: The patient and all family members were given an opportunity to ask questions and understood the discharge instructions. Discharge instructions specifically effects, indications for sooner follow up or return to the emergency department, and the expected course of current diagnosis. Patient condition: Stable Discharge Plan Plan Patient Disposition: HOME (Self Care) Prescriptions/Referrals Prescriptions/Med Rec: New acetaminophen-codeine 300-30 mg tablet 2 tab PO Q8H MDD 6 PRN (Reason: pain) Qty: 20 0RF lidocaine [Lidoderm] 5 % adhesive patch,medicated 2 patch topical QDAY PRN (Reason: pain) Qty: 30 0RF Rx Instructions: leave on most painful area for up to 12 hrs No Action psyllium husk 3 gram/5.4 gram powder 1 tbsp PO QDAY Qty: 284 0RF Rx Instructions: mix into at least 8 oz of water or juice before administering (DME) FreeStyle Marjorie 3 Sensor Device See Rx Instructions .Route Qty: 2 0RF Rx Instructions: As directed Basaglar Tempo Pen(U-100)Insln 100 unit/mL (3 mL) insulin pen, sensor 40 unit subcut QDAY Qty: 15 0RF (DME) pen needle, diabetic 29 gauge x 1/2 needle See Rx Instructions .Route Qty: 100 0RF Rx Instructions: As directed (DME) Blood Glucose Test Strip See Rx Instructions .Route Qty: 50 0RF Rx Instructions: As directed (DME) lancets Misc See Rx Instructions .Route Qty: 100 0RF Rx Instructions: As directed (DME) blood-glucose meter Kit See Rx Instructions .Route Qty: 1 0RF Rx Instructions: As directed peg 3350-electrolytes [GaviLyte-G] 236-22.74-6.74 -5.86 gram recon soln 240 ml PO Q10M PRN (Reason: constipation) Qty: 4000 0RF Rx Instructions: until fecal effluent is clear meloxicam 7.5 mg tablet 7.5 mg PO QDAY Qty: 10 0RF ondansetron 4 mg tablet,disintegrating 4 mg PO Q8H Qty: 10 0RF hydrocodone-acetaminophen 5-325 mg tablet 1 tab PO BID MDD 10 PRN (Reason: pain) Qty: 10 0RF bisacodyl [Dulcolax (bisacodyl)] 5 mg tablet,delayed release (DR/EC) 5 mg PO QDAY PRN (Reason: constipation) Qty: 30 0RF hydrocodone-acetaminophen 5-325 mg tablet 1 tab PO Q8H MDD 3 tab PRN (Reason: pain) Qty: 10 0RF amoxicillin-pot clavulanate [Augmentin] 500-125 mg tablet 1 tab PO TID Qty: 20 0RF polyethylene glycol 3350 [Miralax] 17 gram powder in packet 17 g PO BID Qty: 100 0RF pantoprazole [Protonix] 40 mg tablet,delayed release (DR/EC) 40 mg PO QDAY Qty: 30 0RF Problem List Clinical Impression: Strain of abdominal wall, Chronic abdominal pain Patient/Caregiver Discharge Instructions Discharge Activity: activity as tolerated Education Materials: ED Abdominal Pain Unkn Cause Fem, ED Muscle Strain, Abdom en Additional Instructions: Discharge Instructions from Dr. Huggins printed for you: 1. Your right sided abdominal pain that started yesterday after you bent down and got up is due to muscle strain. See attached handout. Apply ice for 20 minutes every 2-3 hours today and tomorrow. Ibuprofen 800 mg every 6-8 hours today and tomorrow to decrease inflammation then as needed. Tylenol with codeine and lidocaine patches as needed. 2. If you want to find the cause and treatment of your chronic abdominal pain, you need to see a private doctor outside the ER to get more investigation not av ailable here in the ER. 3. See a private doctor on 07/14/2025. To make sure there is no serious intra-abdominal condition, ask for help with more investigation not available here in the ER. Such as EGD or scoping the stomach, colonoscopy or scoping the colon, and referral to see apparel sales leader. 4. Seek immediate medical care with worsening or with any concerns. Print Language: Latvian Stand Alone Forms: [employer] Award Info., Patient Portal Info Letter
[2025-07-12] MEDS: ACETAMINOPHEN w/COD 300-30 TABLET 2 TAB PO (00:35)
[2025-07-12] MEDS: IBUPROFEN TAB 400 MG TABLET 800 MG PO (00:35)
[2025-07-12] MEDS: LIDOCAINE 5% 1 PATCH 2 PATCH TOP (00:35)
[2025-07-12 00:50] VITALS: BP 155/82; PULSE 80; RESP 19; TEMP 36.8; O2SAT 98
== END 2025-07-12 00:51 | disposition home or self-care (01) ==
LOC: SERX 07-12 00:55
PROVIDERS: Emergency Provider Emergency Medicine
DX: S39.011A Strain of muscle, fascia and tendon of abdomen, initial encounter (principal); X50.0XXA Overexertion from strenuous movement or load, initial encounter
CPT/HCPCS: 99282; J3490; A9270